=== PATIENT | female | born 1965 | race Caucasian/White ===

== ENCOUNTER 2018-02-13 23:32 | Emergency (ER) | payer BC, OTHER ==
[~2018-02-13] VITALS: Ht 170.2 cm; Wt 64.4 kg
[~2018-02-13 23:32] MED LIST: HYDR-971 PO; IBUP200T44 PO
--- NOTE | 2018-02-13 23:35 | ED.ADGEN ---
Past History Past Medical History: A-Fib, Arthritis, COPD, Kidney Stones, Sciatica, UTI, Other Past Surgical History: Hysterectomy, Other Alcohol Use: None Drug Use: None Adult General Chief Complaint Chief Complaint ".. I ve been having this back and Rt. flank pain.. It been going on for a while.. I was seen at [facility].. and have a follow tomorrow... but the pain is too bad...to wait for the apt..." [facility] HPI Patient is a 52 year old female who presents with above hx and complaints right flank and back pain. Patient states she's had 2 previous episodes of kidney stones. And history of L3-L4 herniated disc disease. Patient unable to relate pain to either one of these presentations. Patient has had severe endometriosis and ovarian cysts requiring total hysterectomy. Patient normally follows at [facility] for care. Patient relates her pain tonight as 9 out of 10. Nothing makes it better. Patient reports did have an ultrasound evaluation within 2 weeks ago which showed no acute pathology. Nothing she does make the pain better. No history of trauma. No history of travel. No history of specific ill contacts. No history immunosuppression. No history of dysuria. History of vaginal discharge. No history of fever or chills. Review of Systems Review of Systems Constitutional: Denies fever or chills [] Eyes: Denies change in visual acuity, redness, or eye pain [] HENT: Denies nasal congestion or sore throat [] Respiratory: Denies cough or shortness of breath [] Cardiovascular: No additional information not addressed in [facility] [] GI: Denies abdominal pain, nausea, vomiting, bloody stools or diarrhea [] : Denies dysuria or hematuria [] Musculoskeletal: Complains of back pain Integument: Denies rash or skin lesions [] Neurologic: Denies headache, focal weakness or sensory changes [] Endocrine: Denies polyuria or polydipsia [] All other systems were reviewed and found to be within normal limits, except as documented in this note. Family History Family History Noncontributory Current Medications Current Medications Current Medications Medications (Trade) Dose Ordered Sig/Giorgi Start Time Stop Time Status Last Admin Dose Admin Ceftriaxone Sodium 1 gm/ Sodium Chloride 50 ml @ 100 mls/hr 1X ONCE 02/14/18 02:00 02/14/18 02:29 DC 02/14/18 01:45 100 MLS/HR Ceftriaxone Sodium (Rocephin) 1 gm STK-MED ONCE 02/14/18 01:39 02/14/18 01:41 DC Ketorolac Tromethamine (Toradol) 30 mg 1X ONCE 02/14/18 00:30 02/14/18 00:31 DC 02/14/18 00:30 30 MG Lactated Ringer's 1,000 ml @ 1,000 mls/hr Q1H 02/14/18 00:30 02/14/18 01:29 DC 02/14/18 00:31 1,000 MLS/HR Magnesium Hydroxide (Milk Of Magnesia) 2,400 mg 1X ONCE 02/14/18 02:00 02/14/18 02:01 DC 02/14/18 01:45 2,400 MG Morphine Sulfate (Morphine 10mg Syringe) 10 mg 1X ONCE 02/14/18 00:30 02/14/18 00:31 DC 02/14/18 00:31 10 MG Ondansetron HCl (Zofran Odt) 8 mg 1X ONCE 02/14/18 00:30 02/14/18 00:31 DC 02/14/18 00:30 8 MG Sodium Chloride 50 ml @ As Directed STK-MED ONCE 02/14/18 01:39 02/14/18 01:40 DC Allergies Allergies Allergies Coded Allergies Type Severity Reaction Last Updated Verified indomethacin Adverse Reaction Severe 01/26/15 Yes pregabalin Adverse Reaction Intermediate 01/26/15 Yes Physical Exam Physical Exam Constitutional: in acute distress, non-toxic appearance. []Purple hair HENT: Normocephalic, atraumatic, bilateral external ears normal, oropharynx moist, no oral exudates, nose normal. [] Eyes: PERRLA, EOMI, conjunctiva normal, no discharge. [] Neck: Normal range of motion, no tenderness, supple, no stridor. [] Cardiovascular:Heart rate regular rhythm, no murmur [] Sinus rhythm on monitor. Lungs & Thorax: Bilateral breath sounds equal with few wheezes on auscultation [] Abdomen: Bowel sounds normal, soft, no tenderness, no masses, no pulsatile masses. [] Old surgery scars. Distended. Skin: Warm, dry, no erythema, no rash. [] Back: No tenderness, right flank CVA tenderness. []Scoliosis Extremities: No tenderness, no cyanosis, no clubbing, ROM intact, no edema. [] Straight leg lift does not exacerbate her back or hip pain Neurologic: Alert and oriented X 3, normal motor function, normal sensory function, no focal deficits noted. [] Psychologic: Affect anxious, judgement normal, mood normal. [] Current Patient Data Vital Signs Vital Signs Date Time Temp Pulse Resp B/P (MAP) Pulse Ox O2 Delivery O2 Flow Rate FiO2 02/14/18 02:25 65 18 110/68 (82) 98 Room Air 02/13/18 23:32 98.4 Lab Results Laboratory Tests Test 02/14/18 00:05 02/14/18 00:25 Urine Collection Type Unknown Urine Color Yellow Urine Clarity Clear Urine pH 6.0 Urine Specific [place] 1.010 Urine Protein Neg (NEG-TRACE) Urine Glucose (UA) Neg mg/dL (NEG) Urine Ketones (Stick) Neg mg/dL (NEG) Urine Blood Small (NEG) Urine Nitrite Neg (NEG) Urine Bilirubin Neg (NEG) Urine Urobilinogen Dipstick 0.2 mg/dL (0.2 mg/dL) Urine Leukocyte Esterase Trace (NEG) Urine RBC 0 /HPF (0-2) Urine WBC 1-4 /HPF (0-4) Urine Squamous Epithelial Cells None /LPF Urine Bacteria Few /HPF (0-FEW) White Blood Count 5.2 x10^3/uL (4.0-11.0) Red Blood Count 4.92 x10^6/uL (3.50-5.40) Hemoglobin 15.3 g/dL (12.0-15.5) Hematocrit 44.6 % (36.0-47.0) Mean Corpuscular Volume 91 fL (79-100) Mean Corpuscular Hemoglobin 31 pg (25-35) Mean Corpuscular Hemoglobin Concent 34 g/dL (31-37) Red Cell Distribution Width 13.7 % (11.5-14.5) Platelet Count 258 x10^3/uL (140-400) Neutrophils (%) (Auto) 53 % (31-73) Lymphocytes (%) (Auto) 33 % (24-48) Monocytes (%) (Auto) 11 % (0-9) H Eosinophils (%) (Auto) 3 % (0-3) Basophils (%) (Auto) 1 % (0-3) Neutrophils # (Auto) 2.7 x10^3uL (1.8-7.7) Lymphocytes # (Auto) 1.7 x10^3/uL (1.0-4.8) Monocytes # (Auto) 0.6 x10^3/uL (0.0-1.1) Eosinophils # (Auto) 0.1 x10^3/uL (0.0-0.7) Basophils # (Auto) 0.0 x10^3/uL (0.0-0.2) Erythrocyte Sedimentation Rate 9 (0-25) Sodium Level 142 mmol/L (136-145) Potassium Level 3.9 mmol/L (3.5-5.1) Chloride Level 106 mmol/L (98-107) Carbon Dioxide Level 26 mmol/L (21-32) Anion Gap 10 (6-14) Blood Urea Nitrogen 20 mg/dL (7-20) Creatinine 0.8 mg/dL (0.6-1.0) Estimated GFR (Cockcroft-Gault) 75.0 Glucose Level 90 mg/dL (70-99) Calcium Level 9.4 mg/dL (8.5-10.1) Total Bilirubin 0.3 mg/dL (0.2-1.0) Direct Bilirubin 0.1 mg/dL (0.0-0.2) Aspartate Amino Transferase (AST) 22 U/L (15-37) Alanine Aminotransferase (ALT) 16 U/L (14-59) Alkaline Phosphatase 79 U/L (46-116) C-Reactive Protein < 0.5 mg/L (0-3.3) Total Protein 7.4 g/dL (6.4-8.2) Albumin 3.6 g/dL (3.4-5.0) EKG EKG [] Radiology/Procedures Radiology/Procedures CT - no acute surgical pathology. My interpretation of acute abd. has increased stool. Doses. Calcified ribs. No acute findings[]. Mild scoliosis. See formal report when available. Course & Med Decision Making Course & Med Decision Making Pertinent Labs and Imaging studies reviewed. (See chart for details) Clear fluid diet. Push Vit. C drinks. Follow up pending cultures and labs for inflammatory / rheumatoid disorder. Keflex 500 three times a day x 7 days. Return if any concerns. [] Final Impression Final Impression 1. Back Pain[]- Rt. 2. UTI 3. Constipation 4. Sciatica 5. COPD 6. Arthritis 7. Scoliosis 8. Hx. of DJD, Disc Lumbar Dz 9. Hx. of Renal Stones 10.Hx. of Afib. Dragon Disclaimer Dragon Disclaimer This electronic medical record was generated, in whole or in part, using a voice recognition dictation system. DESTINY LIN MD Feb 13, 2018 23:35
[2018-02-14] MEDS ORDERED: HYDR-79 PO (00:06)
[2018-02-14] MEDS ORDERED: ONDANSETRON ODT 4 MG TAB.RAPDIS PO ONE (00:30)
[2018-02-14] MEDS ORDERED: MORPHINE SULFATE 10 MG/ML SYRINGE. SQ ONE (00:30)
[2018-02-14] MEDS ORDERED: KETOROLAC 30 MG/ML VIAL. IV ONE (00:30)
[2018-02-14] MEDS ORDERED: IV RINGERS SOLUTION,LACTATED 1,000 ML IV SCH (00:30)
[2018-02-14 00:31] LABS: BACTERIA,URINE FEW /HPF (0-FEW); BILIRUBIN,URINE NEG (NEG); CLARITY,URINE CLEAR; COLOR,URINE YELLOW; GLUCOSE,URINE NEG (NEG); NITRITE,URINE NEG (NEG); RBC,URINE 0 /HPF (0-2); UROBILINOGEN,URINE 0.2 mg/dL (0.2 mg/dL)
--- NOTE | 2018-02-14 00:45 | RAD ---
EXAM: CT ABDOMEN/PELVIS WITHOUT CONTRAST. HISTORY: Right lower quadrant and right flank pain. Renal stone. TECHNIQUE: Computed tomography of the abdomen and pelvis was performed without intravenous contrast. COMPARISON: January 26, 2015. FINDINGS: Lung windows through the visualized portions of the bases reveal no abnormality. Bone windows reveal no suspicious lesions. A prominent Tarlov cyst on the left measures 3.5 x 2.0 cm. Stool throughout the colon is consistent with constipation. There is no obstruction. The uterus is surgically absent. The appendix is not inflamed. A tiny calculus in the left renal interpolar region measures <2 mm. There is no hydronephrosis. No ureteral calculi are identified. The liver, pancreas, adrenal glands, spleen and gallbladder are unremarkable without contrast. IMPRESSION: 1. Tiny <2 mm left renal calculus. No ureteral calculi. 2. Correlate for constipation as a cause of symptoms. *One or more of the following individualized dose reduction techniques were utilized for this examination: 1. Automated exposure control. 2. Adjustment of the mA and/or kV according to patient size. 3. Use of iterative reconstruction technique. Electronically signed by: Ivan Fatima MD (02/14/2018 12:41 AM) [facility]
--- NOTE | 2018-02-14 00:46 | RAD ---
EXAM: Two view abdomen with one view chest HISTORY: Right lower quadrant and right flank pain. COMPARISON: August 26, 2005. FINDINGS: A frontal view of the chest and supine/upright views of the abdomen are obtained. There are no confluent infiltrates. The lungs are expanded to the 11th posterior ribs. There is no pneumothorax or pleural effusion. The heart is not enlarged. There is a mild thoracic dextroscoliosis. There is no pneumoperitoneum. There are no distended small bowel loops or significant air-fluid levels. There is gas distally. Stool throughout the colon is consistent with constipation. There is a mild thoracic levocurvature. IMPRESSION: 1. No confluent infiltrates. Hyperinflation. Correlate for chronic obstructive pulmonary disease. 2. No evidence of obstruction. Correlate for constipation. Electronically signed by: Ivan Fatima MD (02/14/2018 12:43 AM) [id number]
[2018-02-14 00:51] LABS: BASO % 1 % (0-3); EOS # 0.1 x10^3/uL (0.0-0.7); EOS % 3 % (0-3); HEMATOCRIT 44.6 % (36.0-47.0); HEMOGLOBIN 15.3 g/dL (12.0-15.5); LYMPH # 1.7 x10^3/uL (1.0-4.8); LYMPH % 33 % (24-48); MEAN CORPUSCULAR HEMOGLOBIN 31 pg (25-35); MEAN CORPUSCULAR HGB CONC 34 g/dL (31-37); MEAN CORPUSCULAR VOLUME 91 fL (79-100); MONO # 0.6 x10^3/uL (0.0-1.1); MONO % 11 % (0-9); NEUT # 2.7 x10^3uL (1.8-7.7); NEUT % 53 % (31-73); PLATELET COUNT 258 x10^3/uL (140-400); RED BLOOD COUNT 4.92 x10^6/uL (3.50-5.40); RED CELL DISTRIBUTION WIDTH 13.7 % (11.5-14.5); WHITE BLOOD COUNT 5.2 x10^3/uL (4.0-11.0)
[2018-02-14 01:00] LABS: ALBUMIN 3.6 g/dL (3.4-5.0); CALCIUM 9.4 mg/dL (8.5-10.1); CREATININE 0.8 mg/dL (0.6-1.0); DIRECT BILIRUBIN 0.1 mg/dL (0.0-0.2); POTASSIUM 3.9 mmol/L (3.5-5.1); TOTAL BILIRUBIN 0.3 mg/dL (0.2-1.0); TOTAL PROTEIN 7.4 g/dL (6.4-8.2)
[2018-02-14] MEDS ORDERED: cefTRIAXone SODIUM 1 GM VIAL IV ONE (01:39)
[2018-02-14] MEDS ORDERED: IV NORMAL SALINE 50ML 50 ML ONE (01:39)
[2018-02-14] MEDS ORDERED: CEPH-264 PO (01:42)
[2018-02-14] MEDS ORDERED: MAGNESIUM HYDROXIDE 2,400 MG/30 ML ORAL.SUSP. PO ONE (02:00)
[2018-02-14 02:25] VITALS: BP 110/68
[2018-02-14 20:08] LABS: RHEUMATOID FACTOR 12.8 IU/mL (0.0-13.9)
[2018-02-16 19:09] LABS: ANA INTERP Negative (.)
[2018-02-17 00:08] LABS: CYCLIC CITRULLIN PEP AB 8 units (0-19)
== END 2018-02-14 02:25 | disposition home or self-care (01) ==
LOC: ER 23:32
DX: N39.0 Urinary tract infection, site not specified (principal); K59.00 Constipation, unspecified; M54.41 Lumbago with sciatica, right side; M19.90 Unspecified osteoarthritis, unspecified site; J44.9 Chronic obstructive pulmonary disease, unspecified; M51.26 Other intervertebral disc displacement, lumbar region; M47.896 Other spondylosis, lumbar region; I48.91 Unspecified atrial fibrillation; Z90.710 Acquired absence of both cervix and uterus; Z87.442 Personal history of urinary calculi; Z88.8 Allergy status to other drugs, medicaments and biological substances
CPT/HCPCS: 36415; 74022; 74176; 80048; 80076; 81001; 85025; 85651; 86038; 86140; 86200; 86431; 87086; 96365; 96372; 96375; 99285; J0696; J1885; J2270; J7120; Q0162

== ENCOUNTER 2018-02-15 21:56 | Emergency (ER) | payer BC, OTHER ==
[~2018-02-15] VITALS: Ht 170.2 cm; Wt 64.4 kg
[~2018-02-15 21:56] MED LIST changes: +CEPH-264 PO; +HYDR-79 PO
--- NOTE | 2018-02-15 22:13 | ED.ADGEN ---
Past History Past Medical History: A-Fib, Arthritis, COPD, Kidney Stones, Sciatica, UTI, Other Past Surgical History: Hysterectomy, Other Alcohol Use: None Drug Use: None Adult General Chief Complaint Chief Complaint " My back pain is even worse..and whole leg is on fire....".. " Here on my Rt. leg..." HPI HPI Patient is a 52 year old FEMALE who presents with above hx and complaints increased sciatic complaints. Patient seen previously for similar presentation on Tuesday 02/13 this past week . Patient localizes her discomfort in the sciatic nerve on the right. Straight leg lift exacerbates the pain. Patient denies any problems with defecation or urination. Patient denies any fever or chills. Patient denies any recent travel or specific ill contacts. Patient normally follows at [facility]. Patient denies any history of cancer. Patient denies history of immunosuppression. She recently diagnosed with a urinary tract infection. Patient has reportedly been compliant with her medications. Review of Systems Review of Systems Constitutional: Denies fever or chills [] Eyes: Denies change in visual acuity, redness, or eye pain [] HENT: Denies nasal congestion or sore throat [] Respiratory: Denies cough or shortness of breath [] Cardiovascular: No additional information not addressed in HPI [] GI: Denies abdominal pain, nausea, vomiting, bloody stools or diarrhea [] : Denies dysuria or hematuria [] Musculoskeletal: Complaints of back pain and right leg pain[] Integument: Denies rash or skin lesions [] Neurologic: Denies headache, focal weakness or sensory changes [] Endocrine: Denies polyuria or polydipsia [] All other systems were reviewed and found to be within normal limits, except as documented in this note. Family History Family History Noncontributory Current Medications Current Medications Current Medications Medications (Trade) Dose Ordered Sig/Giorgi Start Time Stop Time Status Last Admin Dose Admin Diphenhydramine HCl (Benadryl) 50 mg 1X ONCE 02/16/18 03:30 02/16/18 03:31 DC 02/16/18 03:34 50 MG Ketorolac Tromethamine (Toradol) 30 mg 1X ONCE 02/15/18 23:00 02/15/18 23:01 DC 02/15/18 23:51 30 MG Methylprednisolone Acetate (DEPO-Medrol IM) 40 mg 1X ONCE 02/15/18 23:00 02/15/18 23:01 DC 02/15/18 23:36 40 MG Morphine Sulfate (Morphine 10mg Syringe) 10 mg 1X ONCE 02/15/18 23:00 02/15/18 23:01 DC 02/15/18 23:39 10 MG Orphenadrine Citrate (Norflex) 60 mg 1X ONCE 02/15/18 23:00 02/15/18 23:01 DC 02/15/18 23:53 60 MG See nursing for home medications Allergies Allergies Allergies Coded Allergies Type Severity Reaction Last Updated Verified indomethacin Adverse Reaction Severe 01/26/15 Yes pregabalin Adverse Reaction Intermediate 01/26/15 Yes Physical Exam Physical Exam Constitutional: Well developed, well nourished, Moderate acute distress, non- toxic appearance. []Purple hair HENT: Normocephalic, atraumatic, bilateral external ears normal, oropharynx moist, no oral exudates, nose normal. [] Eyes: PERRLA, EOMI, conjunctiva normal, no discharge. [] Neck: Normal range of motion, no tenderness, supple, no stridor. [] Cardiovascular:Heart rate regular rhythm, no murmur [] Lungs & Thorax: Bilateral breath sounds equal apex. on Auscultation [] a few scattered wheezes. Abdomen: Bowel sounds normal, soft, no tenderness, no masses, no pulsatile masses. [] Old surgical scar. Distended. Skin: Warm, dry, no erythema, no rash. [] Back: No tenderness, no CVA tenderness. [] Extremities: Right sciatic nerve tenderness, no cyanosis, no clubbing, ROM intact, no edema. [] Cording appreciated. Neurologic: Alert and oriented X 3, normal motor function, normal sensory function, no focal deficits noted. []DTRs are +2 at patella. Somewhat guarded gait. Psychologic: Affect anxious, judgement normal, mood normal. [] Current Patient Data Vital Signs Vital Signs Date Time Temp Pulse Resp B/P (MAP) Pulse Ox O2 Delivery O2 Flow Rate FiO2 02/15/18 23:39 16 97 Room Air Lab Results Laboratory Tests Test 02/15/18 22:07 02/15/18 23:45 Urine Collection Type Unknown Urine Color Yellow Urine Clarity Clear Urine pH 7.0 Urine Specific [place] 1.015 Urine Protein Neg (NEG-TRACE) Urine Glucose (UA) Neg mg/dL (NEG) Urine Ketones (Stick) Neg mg/dL (NEG) Urine Blood Trace (NEG) Urine Nitrite Neg (NEG) Urine Bilirubin Neg (NEG) Urine Urobilinogen Dipstick 0.2 mg/dL (0.2 mg/dL) Urine Leukocyte Esterase Trace (NEG) Urine RBC Occ /HPF (0-2) Urine WBC 1-4 /HPF (0-4) Urine Squamous Epithelial Cells Few /LPF Urine Bacteria 0 /HPF (0-FEW) White Blood Count 4.6 x10^3/uL (4.0-11.0) Red Blood Count 4.43 x10^6/uL (3.50-5.40) Hemoglobin 13.8 g/dL (12.0-15.5) Hematocrit 40.1 % (36.0-47.0) Mean Corpuscular Volume 91 fL (79-100) Mean Corpuscular Hemoglobin 31 pg (25-35) Mean Corpuscular Hemoglobin Concent 35 g/dL (31-37) Red Cell Distribution Width 13.5 % (11.5-14.5) Platelet Count 239 x10^3/uL (140-400) Neutrophils (%) (Auto) 53 % (31-73) Lymphocytes (%) (Auto) 32 % (24-48) Monocytes (%) (Auto) 12 % (0-9) H Eosinophils (%) (Auto) 2 % (0-3) Basophils (%) (Auto) 1 % (0-3) Neutrophils # (Auto) 2.4 x10^3uL (1.8-7.7) Lymphocytes # (Auto) 1.5 x10^3/uL (1.0-4.8) Monocytes # (Auto) 0.6 x10^3/uL (0.0-1.1) Eosinophils # (Auto) 0.1 x10^3/uL (0.0-0.7) Basophils # (Auto) 0.0 x10^3/uL (0.0-0.2) Erythrocyte Sedimentation Rate 8 (0-25) Sodium Level 140 mmol/L (136-145) Potassium Level 3.7 mmol/L (3.5-5.1) Chloride Level 106 mmol/L (98-107) Carbon Dioxide Level 29 mmol/L (21-32) Anion Gap 5 (6-14) L Blood Urea Nitrogen 18 mg/dL (7-20) Creatinine 0.8 mg/dL (0.6-1.0) Estimated GFR (Cockcroft-Gault) 75.0 Glucose Level 105 mg/dL (70-99) H Calcium Level 9.2 mg/dL (8.5-10.1) EKG EKG [] Radiology/Procedures Radiology/Procedures I interpretation CT of spine shows no obvious fracture dislocation. Does have degenerative joint changes. Has findings reportedly of left neural foraminal stenosis at L5-S1 level. Does have degenerative joint changes. Take at L5 and L4. Does have lumbar scoliosis. There is findings of constipation.[] Course & Med Decision Making Course & Med Decision Making Pertinent Labs and Imaging studies reviewed. (See chart for details) Patient to continue meds as previous directed. Patient encouraged follow-up with primary care. Patient encouraged follow-up neurosurgery. Further evaluation must be completed if persistent pain. May need for MRI with contrast to fully evaluate the Lumbar spine. Patient push fruit juices and high-fiber. Constipation. Milk of magnesia as severe constipation. [] Final Impression Final Impression 1. Sciatica 2. Degenerative joint changes Lumbar and sacral spine 3. Constipation [] Dragon Disclaimer Dragon Disclaimer This electronic medical record was generated, in whole or in part, using a voice recognition dictation system. DESTINY LIN MD Feb 15, 2018 22:13
[2018-02-15] MEDS ORDERED: ORPHENADRINE CITRATE 60 MG/2 ML VIAL. IV ONE (23:00)
[2018-02-15] MEDS ORDERED: MORPHINE SULFATE 10 MG/ML SYRINGE. SQ ONE (23:00)
[2018-02-15] MEDS ORDERED: KETOROLAC 30 MG/ML VIAL. IV ONE (23:00)
[2018-02-15] MEDS ORDERED: methylPREDNISolone ACETATE 40 MG/ML VIAL. IM ONE (23:00)
[2018-02-15 23:03] LABS: CLARITY,URINE CLEAR; COLOR,URINE YELLOW; GLUCOSE,URINE NEG (NEG)
[2018-02-15 23:04] LABS: BACTERIA,URINE 0 /HPF (0-FEW); BILIRUBIN,URINE NEG (NEG); NITRITE,URINE NEG (NEG); RBC,URINE OCC /HPF (0-2); SQUAMOUS EPITHELIAL CELL,UR FEW /LPF; UROBILINOGEN,URINE 0.2 mg/dL (0.2 mg/dL)
[2018-02-16 00:01] LABS: BASO % 1 % (0-3); EOS # 0.1 x10^3/uL (0.0-0.7); EOS % 2 % (0-3); HEMATOCRIT 40.1 % (36.0-47.0); HEMOGLOBIN 13.8 g/dL (12.0-15.5); LYMPH # 1.5 x10^3/uL (1.0-4.8); LYMPH % 32 % (24-48); MEAN CORPUSCULAR HEMOGLOBIN 31 pg (25-35); MEAN CORPUSCULAR HGB CONC 35 g/dL (31-37); MEAN CORPUSCULAR VOLUME 91 fL (79-100); MONO # 0.6 x10^3/uL (0.0-1.1); MONO % 12 % (0-9); NEUT # 2.4 x10^3uL (1.8-7.7); NEUT % 53 % (31-73); PLATELET COUNT 239 x10^3/uL (140-400); RED BLOOD COUNT 4.43 x10^6/uL (3.50-5.40); RED CELL DISTRIBUTION WIDTH 13.5 % (11.5-14.5); WHITE BLOOD COUNT 4.6 x10^3/uL (4.0-11.0)
[2018-02-16 00:12] LABS: CALCIUM 9.2 mg/dL (8.5-10.1); CREATININE 0.8 mg/dL (0.6-1.0); POTASSIUM 3.7 mmol/L (3.5-5.1)
[2018-02-16 00:59] LABS: SEDIMENTATION RATE 8 (0-25)
--- NOTE | 2018-02-16 02:11 | RAD ---
EXAM: CT lumbar spine without contrast. HISTORY: Low back pain. Right lower extremity radiculopathy. Weakness. TECHNIQUE: CT of the lumbar spine was performed without intravenous contrast. COMPARISON: None. FINDINGS: A prominent Tarlov cyst on the left at S2 measures 4.0 x 1.9 cm. Stool throughout the right colon is consistent with constipation. There is a mild lumbar levocurvature. Vertebral body heights are maintained, and no fractures are identified. Degenerative disc disease is mild at L4-5. At L1-2, there is a small posterior disc bulge. There is no stenosis. At L2-3, there is a small posterior disc bulge. Facet and ligamentum flavum hypertrophy is mild to moderate. There is no stenosis. At L3-4, there is a small posterior disc bulge. Facet and ligamentum flavum hypertrophy is mild. There is mild left neural foraminal narrowing. At L4-5, there is a moderate posterior disc bulge. Facet and ligamentum flavum hypertrophy is mild to moderate. There is only mild bilateral neural foraminal narrowing. At L5-S1, there is a small posterior disc bulge. Left facet osteoarthritis is mild to moderate. Left neural foraminal stenosis is mild. IMPRESSION: 1. There is only mild left neural foraminal stenosis at L5-S1. Neural foraminal narrowing is minimal at other levels as above. 2. Mild degenerative disc disease at L4-5. 3. Mild lumbar levoconvex scoliosis. 4. Correlate for constipation. *One or more of the following individualized dose reduction techniques were utilized for this examination: 1. Automated exposure control. 2. Adjustment of the mA and/or kV according to patient size. 3. Use of iterative reconstruction technique. Electronically signed by: Ivan Fatima MD (02/16/2018 2:07 AM) [id number]
[2018-02-16] MEDS ORDERED: diphenhydrAMINE 50 MG/ML VIAL IV ONE (03:30)
[2018-02-16 03:40] VITALS: BP 118/74
== END 2018-02-16 03:40 | disposition home or self-care (01) ==
LOC: ER 21:56
DX: M54.31 Sciatica, right side (principal); M47.897 Other spondylosis, lumbosacral region; K59.00 Constipation, unspecified; M19.90 Unspecified osteoarthritis, unspecified site; I48.91 Unspecified atrial fibrillation; J44.9 Chronic obstructive pulmonary disease, unspecified; Z87.440 Personal history of urinary (tract) infections; Z87.442 Personal history of urinary calculi; Z90.710 Acquired absence of both cervix and uterus; Z88.1 Allergy status to other antibiotic agents; Z88.8 Allergy status to other drugs, medicaments and biological substances
CPT/HCPCS: 36415; 72133; 80048; 81001; 85025; 85651; 87086; 96372; 96374; 96375; 99285; J1030; J1200; J1885; J2270; J2360